=== PATIENT | male | born 1950 | race Caucasian/White ===

== ENCOUNTER 2019-12-17 11:01 | Outpatient (CLI) | payer MEDICARE ==
--- NOTE | 2019-12-17 12:00 | RAD ---
LUMBAR SPINE 2 VIEWS: Date: 12/17/2019 INDICATION: Low back pain. COMPARISON: None. FINDINGS: There is mild multilevel disc degenerative facet osteoarthritic change. There is dextroscoliosis cent ered at L2-3. Spinal alignment on the lateral projection appears within normal limits. No acute fract ure is evident. IMPRESSION: Mild spondylosis of the lumbar spine. POS: BH
== END 2019-12-17 11:02 | disposition home or self-care (01) ==
LOC: BICRAD 11:01
PROVIDERS: ATTEND Student in an Organized Health Care Education/Training Program
DX: M54.5 Low back pain (principal); M47.816 Spondylosis without myelopathy or radiculopathy, lumbar region
CPT/HCPCS: 72100